=== PATIENT | male | born 1940 | race Caucasian/White ===

== ENCOUNTER 2020-03-10 21:41 | Emergency (ER) | payer MEDICARE, SELFPAY ==
[2020-03-10 21:45] VITALS: BP 152/67; PULSE 46; RESP 18; TEMP 36.4; O2SAT 99; BMI 23.6
--- NOTE | 2020-03-10 22:07 | ED_ITS ---
HPI - Extremity Problem General Chief complaint: Extremity Problem,Nontraumatic Stated complaint: left leg pain, concerned about a blood clot Time Seen by Provider: 03/10/20 21:46 Source: patient Mode of arrival: Ambulatory Limitations: no limitations History of Present Illness HPI Narrative: 79M with history of HTN, VIDA, and TGA presents with the chief complaint of a painful swollen area on left medial, posterior knee and there is concern for clot. He denies any injury. He denies injury or history of the same. He does have known varicosities in both legs. He denies CP, SOB, or other symptoms. MD Complaint: extremity pain and extremity swelling Onset (ago): day(s) Pain Consistency: constant Location: left Quality: aching Radiation: none Relieving factors: nothing Exacerbating factors: range of motion and palpation Associated symptoms: denies other symptoms Related Data Home Medications Medication Instructions Recorded Confirmed fexofenadine 180 mg tablet 180 mg PO DAILY 02/01/18 01/31/19 Resmed Airsense 10 CPAP #1 ea 01/31/19 01/31/19 Previous Rx's Medication Instructions Recorded atorvastatin [Lipitor] 80 mg PO HS #90 tab 01/13/17 ezetimibe [Zetia] 10 mg PO QDAY #90 tab 04/05/17 lisinopril-hydrochlorothiazide 1 tab PO QDAY #90 tab 04/05/17 Allergies Allergy/AdvReac Type Severity Reaction Status Date / Time No Known Allergies Allergy Uncoded 01/31/19 15:01 Review of Systems Constitutional Constitutional: Denies chills, Denies fatigue, Denies fever(s), Denies frequent falls, Denies lethargy and Denies weakness Eyes Eyes: Denies change in vision, Denies eye discharge, Denies irritation and Denies loss of vision ENT Ears, Nose, Mouth, and Throat: Denies change in voice, Denies dizziness, Denies neck pain, Denies sore throat and Denies throat swelling Cardiovascular Cardiovascular: Denies chest pain, Denies irregular heart rhythm, Denies lightheadedness, Denies palpitations, Denies dyspnea, Denies dyspnea on exertion and Denies orthopnea Respiratory Respiratory: Denies cough, Denies dyspnea, Denies dyspnea on exertion and Denies wheezing Gastrointestinal Gastrointestinal: Denies abdominal pain, Denies change in bowel habits, Denies diarrhea, Denies nausea and Denies vomiting Musculoskeletal Musculoskeletal: Denies neck pain and Denies numbness Integumentary/Breasts Skin/Breast: Denies pruritus, Denies erythema, Denies rash and Denies wounds Comments: painful swelling in knee Neurologic Neurologic: Denies behavioral changes, Denies confusion, Denies dizziness, Denies frequent falls, Denies loss of vision, Denies numbness and Denies we akness Psychiatric Psychiatric: Denies anxiety, Denies behavioral changes, Denies confusion, Denies depression, Denies homicidal ideation and Denies suicidal ideation Endocrine Endocrine: Denies fatigue, Denies flushing and Denies palpitations Hematologic/Lymphatic Hematologic/Lymphatic: Denies easy bruising Allergic/Immunologic Allergic/Immunologic: Denies urticaria, Denies throat swelling and Denies wheezing Patient History Social History Smoking Status: Former smoker Smoking Status: Former smoker alcohol intake frequency: 0-2 drinks per day Substance Use Type: does not use Exam Narrative Exam Narrative: GENERAL: [79] year old patient appears stated age. Well- nourished, well-developed patient, in mild distress. HEAD: Atraumatic. Normocephalic. EYES: Pupils equal round and reactive. Extraocular motions intact. No scleral icterus. No injection or drainage. ENT: Nose without bleeding, purulent drainage. Throat without erythema, tonsillar hypertrophy or exudate. Airway patent. NECK: Trachea midline. Non tender CARDIOVASCULAR: Regular rate and rhythm without murmurs, gallops, or rubs. RESPIRATORY: Clear to auscultation. Breath sounds equal bilaterally. No wheezes, rales, or rhonchi. GASTROINTESTINAL: Abdomen soft, non-tender, nondistended. EXTREMITIES: No deformity or bony tenderness. BACK: Nontender without deformity or crepitance. No flank tenderness. NEURO: AOx3. SKIN: Swollen, tender [place] region on left medial posterior knee consistent with thrombosed varicosity / superficial thromus Otherwise. No rash or erythema of visible areas Initial Vital Signs Initial Vital Signs: Vital Signs Temperature 97.6 F 03/10/20 21:45 Pulse Rate 46 L 03/10/20 21:45 Respiratory Rate 18 03/10/20 21:45 Blood Pressure 152/67 H 03/10/20 21:45 Pulse Oximetry 99 03/10/20 21:45 Course Orders Ordered: ED Orders 03/10/20 22:14 US periph venous low extrem lt Stat 03/10/20 22:25 Basic Metabolic Panel Stat Complete Blood Count AUTO DIFF Stat Prothrombin Time INR Stat Vital Signs Vital signs: Vital Signs - 8 hr 03/10/20 21:45 03/10/20 23:19 Temperature 97.6 F Pulse Rate 46 L 41 L Respiratory Rate 18 12 Blood Pressure 152/67 H 147/66 H Pulse Oximetry 99 98 MDM - Extremity (Nontraumatic) Lab Data Result diagrams: 03/10/20 22:25 03/10/20 22:25 Labs: Lab Results 03/10/20 03/10/20 03/10/20 Range/Units 22:25 22:25 22:25 WBC 6.2 (4.5-11.0) X10^3/uL RBC 4.01 L (4.5-5.9) X10^6/uL Hgb 11.8 L (13.5-17.5) g/dL Hct 35.7 L (41-53) % MCV 88.8 (80-100) fL MCH 29.4 (26-34) PG MCHC 33.1 (30-36) % RDW 14.3 (11.6-14.8) % Plt Count 173 (150-400) X10^3/uL Neut % (Auto) 55.2 (50-75) % Lymph % (Auto) 29.4 (25-40) % [place] % (Auto) 11.2 (3-14) % Eos % (Auto) 3.3 (2-4) % Baso % (Auto) 0.9 (0-2) % Neut # (Auto) 3400 (4294-0479) /uL Lymph # (Auto) 1800 (5540-0214) /uL [place] # (Auto) 700 (0-900) /uL Eos # (Auto) 200 (0-450) /uL Baso # (Auto) 100 (0-100) /uL PT 12.3 (10.1-12.7) SECONDS INR 1.1 (0.9-1.3) Sodium 135 L (137-145) mmol/L Potassium 4.3 (3.4-5.1) mmol/L Chloride 108 H (98-107) mmol/L Carbon Dioxide 24 (22-32) mmol/L BUN 30 H (9-20) mg/dL Creatinine 0.91 (0.66-1.25) mg/dL Estimated GFR > 60.0 (>60) mL/min BUN/Creatinine Ratio 33.0 H (6-22) Glucose 107 (80-110) mg/dL Calcium 8.9 (8.4-10.2) mg/dL Imaging Data US - DVT: Radiologist's Impression: 3cm thrombosed varicosity MDM Narrative Medical decision making narrative: Consideration of anticoagulation however, it is less than 5cm and it is not apparently contiguous with superficial femoral. Patient encouraged to follow up closely Discharge Plan Departure Patient Disposition: Home Clinical Impression: Superficial vein thrombosis Discharge Date/Time: 03/10/20 23:22 Instructions: DI for Superficial Thrombophlebitis Activity Restrictions/Additional Instructions: *You have been diagnosed with [superficial thrombo phlebitis of varicosity in left leg] *What to do: *Take medications as directed *Follow up with your primary care provider in 2-3 days, call for an appointment. Let them know you were seen in the Emergency Department and that we ask that you be seen in follow up *Return to ER if you should have any new, worsening or concerning symptoms Prescriptions: No Action atorvastatin [Lipitor] 80 MG tablet 80 mg PO HS Qty: 90 RF: 1 lisinopril-hydrochlorothiazide 20 MG/25 MG tablet 1 tab PO QDAY Qty: 90 RF: 1 ezetimibe [Zetia] 10 MG tablet 10 mg PO QDAY Qty: 90 RF: 1 fexofenadine [Jesica Allergy] 180 mg tablet 180 mg PO DAILY RF: 0 (DME) Resmed Airsense 10 CPAP Qty: 1 RF: 0 Referrals: Srinath Weiss MD [Primary Care Provider] -
--- NOTE | 2020-03-10 22:14 | DI.US.S_ITS ---
PROCEDURE: US PERIPH VENOUS LOW EXTREM LT INDICATIONS: pain, swelling, redness, warmth LLE TECHNIQUE: Real-time imaging, as well as color and pulse Doppler interrogation, were performed of the lower extremity deep veins from the inguinal ligament to the popliteal fossa. COMPARISON: None. FINDINGS: The common femoral, femoral and popliteal veins are normally compressible, and free of intraluminal thrombus. Color and pulse Doppler demonstrate normal phasic intraluminal flow. There is normal augmentation response to distal compression maneuver. Incidental note made of a 3 centimeter thrombosed superficial venous varicosity medial to the left knee appear. IMPRESSION: No evidence of deep vein thrombosis involving the left lower extremity. Dictated by: Tosha Spence MD, PhD on 03/11/2020 at 8:26 Approved by: Tosha Spence MD, PhD on 03/11/2020 at 8:27
[2020-03-10 22:37] LABS: Add Manual Diff / Slide Review NO; Basophils Absolute Auto 100 /uL (0-100); Basophils Percent Auto 0.9 % (0-2); Eosinophils Absolute Auto 200 /uL (0-450); Eosinophils Percent Auto 3.3 % (2-4); Hematocrit 35.7 % (41-53); Hemoglobin 11.8 g/dL (13.5-17.5); Lymphocytes Absolute Auto 1800 /uL (1100-4500); Lymphocytes Percent Auto 29.4 % (25-40); Mean Corpuscular HGB Conc 33.1 % (30-36); Mean Corpuscular Hemoglobin 29.4 PG (26-34); Mean Corpuscular Volume 88.8 fL (80-100); Monocytes Absolute Auto 700 /uL (0-900); Monocytes Percent Auto 11.2 % (3-14); Neutrophils Absolute Auto 3400 /uL (1500-7000); Neutrophils Percent Auto 55.2 % (50-75); Platelet Count 173 X10^3/uL (150-400); Red Blood Cell Count 4.01 X10^6/uL (4.5-5.9); Red Cell Distribution Width 14.3 % (11.6-14.8); White Blood Cell Count 6.2 X10^3/uL (4.5-11.0)
[2020-03-10 22:48] LABS: INR 1.1 (0.9-1.3); Prothrombin Time 12.3 SECONDS (10.1-12.7)
[2020-03-10 23:02] LABS: Blood Urea Nitrogen 30 mg/dL (9-20); Calcium 8.9 mg/dL (8.4-10.2); Carbon Dioxide 24 mmol/L (22-32); Chloride 108 mmol/L (98-107); Estimated Glomerular Filt Rate > 60.0 mL/min (>60); Glucose 107 mg/dL (80-110); HEMOLYSIS < 15 (0-50); Potassium 4.3 mmol/L (3.4-5.1); Sodium 135 mmol/L (137-145)
[2020-03-10 23:19] VITALS: BP 147/66; PULSE 41; RESP 12; O2SAT 98
== END 2020-03-10 23:22 | disposition home or self-care (01) ==
PROVIDERS: Emergency Provider Emergency Medicine; Family Provider Family Medicine; PCP Family Medicine
DX: I82.812 Embolism and thrombosis of superficial veins of left lower extremity (principal)
CPT/HCPCS: 36415; 80048; 85025; 85610; 93971; 99283; 99284

== ENCOUNTER 2021-02-28 11:36 | Observation (INO) | payer MEDICARE, SELFPAY ==
[2021-02-28] VITALS (13 sets, daily range): BP systolic 159–196; BP diastolic 56–82; PULSE 36–44; RESP 16–29; TEMP 36.3–36.6; O2SAT 91–100; BMI 23.6
--- NOTE | 2021-02-28 11:51 | DI.RAD.S_ITS ---
PROCEDURE: XR CHEST 1V INDICATIONS: Possible stroke TECHNIQUE: One view of the chest was acquired. COMPARISON: ADRIANA Tate, CHEST 2 VIEW, 10/04/2014, 15:26. FINDINGS: Surgical changes and devices: None. Lungs and pleura: Lungs are clear. No pleural effusions or pneumothorax. Mediastinum: Mediastinal contours appear normal. Heart size is mildly enlarged. Bones and chest wall: No suspicious bony lesions. Overlying soft tissues appear unremarkable. IMPRESSION: No acute pulmonary process. Dictated by: Barbara Blunt M.D. on 02/28/2021 at 12:21 Approved by: Barbara Blunt M.D. on 02/28/2021 at 12:23
--- NOTE | 2021-02-28 11:53 | PC.NURSE ---
Pt arrives ambulatory from eye doctor c/o loss of some vision in L eye. 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 No blood thinners and states Ran out of ASA. LKW 2100 last night before going to bed. states awoke with loss of upper quadrants vision in L eye. No weakness appreciated in all limbs, AAOx3, HR noted to be 36-40. Pt unaware if that is baseline. BP 196/82. Denies H/A, CP, SOB. EKG obtained. attached to cardiac monitoring, IV placed and labs drawn. Dr Palomares aware.
--- NOTE | 2021-02-28 11:54 | DI.CT.S_ITS ---
PROCEDURE: CT ANGIO HEAD AND NECK INDICATIONS: Known left central retinal artery occlusion, prior right occ TECHNIQUE: Pre-contrast 4.5 mm thick sections acquired from the foramen magnum to the vertex. After the administration of intravenous contrast, 1 mm thick sections acquired from the aortic arch through the [place] of [place]. Post-contrast 4.5 mm thick sections then re-acquired from the foramen magnum to the vertex. 3-dimensional [id number] (MIP) and/or volume rendering reformats were acquired of the central intracranial vasculature and neck separately. COMPARISON: None. FINDINGS: Image quality: Excellent. BRAIN: CSF spaces: Ventricles are normal in size and shape. Basal cisterns are patent. No extra-axial fluid collections. Brain: No midline shift. No intracranial bleeds or masses. [place]le[place]-white matter interface appears intact. Skull and face: Calvarium and facial bones appear intact, without suspicious lesions. Orbits appear normal. Sinuses: Sinuses and mastoids are clear. HEAD CT ANGIOGRAPHY: Anterior circulation: Intracranial internal carotid arteries have atherosclerotic calcifications in the cavernous portions with moderate right and mild left stenosis. The flow within the paired anterior cerebral arteries is normal and symmetric. The flow within the middle cerebral arteries is normal and symmetric. The anterior communicating artery is seen. No aneurysms are seen. Posterior circulation: Visualized portions of the vertebral arteries demonstrate normal caliber, and join to form a normal appearing basilar artery. Flow within the posterior cerebral arteries is normal and symmetric. No aneurysms are seen. NECK CT ANGIOGRAPHY: Carotid system: The great vessels demonstrate a conventional anatomy as they arise from the aortic arch. At the origin of the right brachiocephalic artery there is eccentric plaque causing a moderate stenosis with ulcerations within the plaque. The origins of the common carotid arteries appear patent. The common carotid arteries demonstrate normal caliber and courses. The bifurcation regions have atherosclerotic calcifications with no significant stenosis on the left and with approximately 40 percent stenosis on the right. The internal carotid arteries demonstrate normal calibers and courses. Posterior circulation: The origin of the right vertebral artery has a moderate stenosis. The origin of the left vertebral artery also has a moderate stenosis. The more superior extracranial portions of both vertebral arteries also demonstrate normal courses and calibers. They join to form a normal appearing basilar artery. Soft tissues: Visualized neck soft tissues demonstrate no suspicious abnormalities. Bones: No suspicious bony lesions. Visualized cervical spine appears normally aligned. IMPRESSION: 1. Eccentric soft plaque at the origin of the right brachiocephalic artery with ulceration could possibly be unstable and a source of emboli. 2. Moderate stenosis of the origins of both vertebral arteries. 3. Calcified atherosclerotic disease in the carotid bulbs bilaterally with 40 percent stenosis on the right and no significant stenosis on the left. 4. Atherosclerotic calcifications Findings were discussed with Dr. Palomares at 1:25 p.m. On 02/28/2021. Any quantitative measurements of stenosis were performed using NASCET criteria. Dictated by: Kehinde Lind M.D. on 02/28/2021 at 13:08 Approved by: Kehinde Lind M.D. on 02/28/2021 at 13:36
[2021-02-28 12:01] LABS: Add Manual Diff / Slide Review NO; Basophils Absolute Auto 100 /uL (0-100); Basophils Percent Auto 0.8 % (0-2); Eosinophils Absolute Auto 100 /uL (0-450); Eosinophils Percent Auto 1.9 % (2-4); Hematocrit 41.9 % (41-53); Hemoglobin 13.9 g/dL (13.5-17.5); Lymphocytes Absolute Auto 2100 /uL (1100-4500); Lymphocytes Percent Auto 27.9 % (25-40); Mean Corpuscular HGB Conc 33.2 % (30-36); Mean Corpuscular Volume 87.3 fL (80-100); Monocytes Absolute Auto 700 /uL (0-900); Monocytes Percent Auto 8.6 % (3-14); Neutrophils Absolute Auto 4600 /uL (1500-7000); Neutrophils Percent Auto 60.8 % (50-75); Platelet Count 220 X10^3/uL (150-400); Red Cell Distribution Width 14.7 % (11.6-14.8); White Blood Cell Count 7.6 X10^3/uL (4.5-11.0)
[2021-02-28 12:07] LABS: Alanine Aminotransferase 21 IU/L (<50); Albumin 4.1 g/dL (3.5-5.0); Albumin Globulin Ratio 1.6 (1.0-2.8); Alkaline Phosphatase 57 U/L (38-126); Aspartate Aminotransferase 32 IU/L (17-59); BUN Creatinine Ratio 21.8 (6-22); Bilirubin Total 0.7 mg/dL (0.2-1.3); Blood Urea Nitrogen 17 mg/dL (9-20); Calcium 9.5 mg/dL (8.4-10.2); Carbon Dioxide 29 mmol/L (22-32); Chloride 105 mmol/L (98-107); Creatine Kinase 134 U/L (55-170); Estimated Glomerular Filt Rate > 60.0 mL/min (>60); Globulin 2.6 g/dL (1.7-4.1); Glucose 92 mg/dL (80-110); HEMOLYSIS < 15 (0-50); Potassium 4.4 mmol/L (3.4-5.1); Sodium 137 mmol/L (137-145); Total Protein 6.7 g/dL (6.3-8.2)
--- NOTE | 2021-02-28 12:07 | ED_ITS ---
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 She states and patient confirmed his last known well was that last evening woke up with left eye visual disturbance. He has a history of partial right central artery occlusion however that has been there for some time. He apparently also has a history of abdominal aortic aneurysm which is stable. He denies any numbness tingling or weakness. Being treated with bromadine for his eye pressure however according to ophthalmology the eye pressure was good. Related Data Home Medications Medication Instructions Recorded Confirmed Resmed Airsense 10 CPAP #1 ea 01/31/19 01/31/19 aspirin 81 mg tablet,delayed 81 mg PO DAILY 02/28/21 02/28/21 release atorvastatin 80 mg tablet (Lipitor) 40 mg PO HS 02/28/21 02/28/21 cholecalciferol (vitamin D3) 50 50 mcg PO DAILY 02/28/21 02/28/21 mcg (2,000 unit) tablet coenzyme Q10 300 mg capsule 300 mg PO DAILY 02/28/21 02/28/21 lisinopril 10 1 tab PO DAILY 02/28/21 02/28/21 mg-hydrochlorothiazide 12.5 mg tablet omega-3 fatty acids-vitamin E 1 cap PO DAILY 02/28/21 02/28/21 1,000 mg capsule Previous Rx's Medication Instructions Recorded ezetimibe 10 mg tablet (Zetia) 10 mg PO QDAY #90 tab 04/05/17 Allergies Allergy/AdvReac Type Severity Reaction Status Date / Time No Known Drug Allergies Allergy Verified 02/28/21 11:47 Review of Systems Review of Systems ROS Unobtainable: All systems reviewed & are unremarkable except as noted in HPI and below Constitutional Constitutional: Denies chills, Denies fatigue and Denies fever(s) Eyes Eyes: Reports as per HPI ENT Ears, Nose, Mouth, and Throat: Denies vertigo, Denies dizziness, Denies disequilibrium and Denies sinus pain Cardiovascular Cardiovascular: Denies chest pain, Denies irregular heart rhythm and Denies dyspnea on exertion Respiratory Respiratory: Denies cough and Denies dyspnea on exertion Gastrointestinal Gastrointestinal: Denies abdominal pain, Denies nausea and Denies vomiting Genitourinary Genitourinary: Denies system reviewed and no additional complaints, except as documented Musculoskeletal Musculoskeletal: Denies myalgias and Denies myalgias Integumentary/Breasts Skin/Breast: Denies rash Neurologic Neurologic: Denies vertigo, Denies dizziness and Denies disequilibrium Endocrine Endocrine: Denies fatigue 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 HEENT: Head atraumatic,EOMI, pupils reactive, face symmetric, moist mucous membranes CARDIOVASCULAR: Regular rate and rhythm without murmurs, rubs or gallops. RESPIRATORY: Breath sounds equal bilaterally, no wheezes rales or rhonchi. ABDOMEN: Soft, nontender. Normoactive bowel sounds all 4 quadrants. No guarding or rebound. EXTREMITIES: Normal range of motion, no clubbing or edema. Neurovascularly intact NEUROLOGICAL: Alert and oriented x4.Normal gait and speech. Cranial nerves II through XII grossly intact. Good [id number], good [id number], strength equal bilaterally, no dysarthria or aphasia, sensation in tact to soft touch bilaterally, no visual changes, no facial droop SKIN: Warm, dry, no laceration, no petechiae, no rashes or lesions. Scores NIH Stroke Scale Level of Conciousness: Alert, keenly responsive Ask month/age: Answers both questions correctly. Open/close eyes, close hand: Performs both tasks correctly Best gaze horizontal: Normal Visual villan[place]: No visual loss Facial palsy: Normal symetrical movement Left arm drift: No drift for full 10 sec Right arm drift: No drift for full 10 sec Left leg drift: No drift for full 5 sec Right leg drift: No drift for full 5 sec Limb ataxia: Absent Sensory on face/arms/legs: Normal, no sensory loss Best language: No aphasia, normal Dysarthria: Normal Extinction or inattention: No abnormality Total NIH Stroke scale score: 0 Course Orders Ordered: ED Orders 02/28/21 11:44 C-Reactive Protein Quant Stat Complete Blood Count AUTO DIFF Stat Comprehensive Metabolic Panel Stat Erythrocyte Sedimentation Rate Stat Troponin & CK Cardiac Panel Stat 02/28/21 11:51 XR chest 1V Stat EKG-12 Lead Stat 02/28/21 11:54 CT angio head and neck Stat 02/28/21 12:23 CT head/brain wo con Stat 02/28/21 14:50 MR stroke Stat Sodium Chloride (Sodium Chloride 0.9% Flush) 10 ml IV PRN PRN PRN Reason: Flush Sodium Chloride (Sodium Chloride 0.9% Flush) 10 ml IV BID TERRY Discontinued Medications Aspirin (Aspirin 81 Mg Chew Tab) 324 mg PO NOW ONE Stop: 02/28/21 14:36 Last Admin: 02/28/21 14:45 Dose: 324 mg Documented by: RUBEN Vital Signs Vital signs: Vital Signs - 8 hr 02/28/21 12:00 02/28/21 12:01 02/28/21 13:16 Pulse Rate 36 L 37 L 38 L Respiratory Rate 29 H 28 H Blood Pressure 191/75 H 191/75 H Pulse Oximetry 100 100 91 02/28/21 13:30 02/28/21 14:00 02/28/21 14:30 Pulse Rate 39 L 39 L 40 L Respiratory Rate 29 H 28 H 21 Blood Pressure Pulse Oximetry 99 98 99 MDM - Neuro Symptoms/Deficit Lab Data Attestation: I reviewed the patient's lab results. Result diagrams: 02/28/21 11:44 02/28/21 11:44 Labs: Lab Results 02/28/21 02/28/21 02/28/21 Range/Units 11:44 11:44 11:44 WBC 7.6 (4.5-11.0) X10^3/uL RBC 4.80 (4.5-5.9) X10^6/uL Hgb 13.9 (13.5-17.5) g/dL Hct 41.9 (41-53) % MCV 87.3 (80-100) fL MCH 29.0 (26-34) PG MCHC 33.2 (30-36) % RDW 14.7 (11.6-14.8) % Plt Count 220 (150-400) X10^3/uL Neut % (Auto) 60.8 (50-75) % Lymph % (Auto) 27.9 (25-40) % [place] % (Auto) 8.6 (3-14) % Eos % (Auto) 1.9 L (2-4) % Baso % (Auto) 0.8 (0-2) % Neut # (Auto) 4600 (1341-6710) /uL Lymph # (Auto) 2100 (1244-1516) /uL [place] # (Auto) 700 (0-900) /uL Eos # (Auto) 100 (0-450) /uL Baso # (Auto) 100 (0-100) /uL ESR 3 (0-15) MM/HR Sodium 137 (137-145) mmol/L Potassium 4.4 (3.4-5.1) mmol/L Chloride 105 (98-107) mmol/L Carbon Dioxide 29 (22-32) mmol/L BUN 17 (9-20) mg/dL Creatinine 0.78 (0.66-1.25) mg/dL Estimated GFR > 60.0 (>60) mL/min BUN/Creatinine Ratio 21.8 (6-22) Glucose 92 (80-110) mg/dL Calcium 9.5 (8.4-10.2) mg/dL Total Bilirubin 0.7 (0.2-1.3) mg/dL AST 32 (17-59) IU/L ALT 21 (<50) IU/L Alkaline Phosphatase 57 (38-126) U/L Total Creatine Kinase 134 (55-170) U/L CK-MB (CK-2) 1.96 (<2.37) ng/mL CK-MB (CK-2) Rel Index 1.5 (1.5-5.0) % Troponin I < 0.012 (0.01-0.034) ng/mL C-Reactive Protein (<1.0) mg/dL Total Protein 6.7 (6.3-8.2) g/dL Albumin 4.1 (3.5-5.0) g/dL Globulin 2.6 (1.7-4.1) g/dL Albumin/Globulin Ratio 1.6 (1.0-2.8) 02/28/21 Range/Units 11:44 WBC (4.5-11.0) X10^3/uL RBC (4.5-5.9) X10^6/uL Hgb (13.5-17.5) g/dL Hct (41-53) % MCV (80-100) fL MCH (26-34) PG MCHC (30-36) % RDW (11.6-14.8) % Plt Count (150-400) X10^3/uL Neut % (Auto) (50-75) % Lymph % (Auto) (25-40) % [place] % (Auto) (3-14) % Eos % (Auto) (2-4) % Baso % (Auto) (0-2) % Neut # (Auto) (0550-7527) /uL Lymph # (Auto) (1363-1466) /uL [place] # (Auto) (0-900) /uL Eos # (Auto) (0-450) /uL Baso # (Auto) (0-100) /uL ESR (0-15) MM/HR Sodium (137-145) mmol/L Potassium (3.4-5.1) mmol/L Chloride (98-107) mmol/L Carbon Dioxide (22-32) mmol/L BUN (9-20) mg/dL Creatinine (0.66-1.25) mg/dL Estimated GFR (>60) mL/min BUN/Creatinine Ratio (6-22) Glucose (80-110) mg/dL Calcium (8.4-10.2) mg/dL Total Bilirubin (0.2-1.3) mg/dL AST (17-59) IU/L ALT (<50) IU/L Alkaline Phosphatase (38-126) U/L Total Creatine Kinase (55-170) U/L CK-MB (CK-2) (<2.37) ng/mL CK-MB (CK-2) Rel Index (1.5-5.0) % Troponin I (0.01-0.034) ng/mL C-Reactive Protein < 0.5 (<1.0) mg/dL Total Protein (6.3-8.2) g/dL Albumin (3.5-5.0) g/dL Globulin (1.7-4.1) g/dL Albumin/Globulin Ratio (1.0-2.8) Urine Dip Bedside Urine Glucose Negative Bedside Urine Bilirubin - Negative Bedside Urine Ketone - Negative Urine Specific [place] 1.015 Bedside Urine Occult Blood - Negative Bedside Urine pH 6.0 Bedside Urine Protein - Negative Bedside Urine Urobilinogen - Negative Bedside Urine Nitrite - Negative Bedside Urine Leukocytes - Negative Esterase ECG Data Interpretation: Sinus bradycardia rate 36 MO interval 174 QRS [address] changes, MDM Narrative Medical decision making narrative: Patient is persistently bradycardic 39-43. He states that he is always bradycardic. Remained hypertensive in the 190s. Patient is found to have an unstable plaque at his brachial radial cephalic artery. I discussed case with Neurology Dr. Barton, but states at this time medication only. Suggest anti-platelet medication aspirin/possibly Plavix and hyperlipidemia control. Patient has low ESR CRP unlikely to be temporal arteritis Dr. ho updated on patient's symptoms chest resolved and neuro recommendations at this time she happily accepted Discharge Plan Departure Patient Disposition: Admitted as Observation Clinical Impression: Acute retinal artery occlusion, Atherosclerotic vascular disease Admit Date/Time: 02/28/21 14:51 Admit Provider: Patti Ho
[2021-02-28 12:11] LABS: C-Reactive Protein Quant < 0.5 mg/dL (<1.0)
[2021-02-28 12:18] LABS: Erythrocyte Sedimentation Rate 3 MM/HR (0-15)
[2021-02-28 12:19] LABS: Troponin I < 0.012 ng/mL (0.01-0.034)
[2021-02-28 12:23] LABS: CKMB % Relative Index 1.5 % (1.5-5.0); Creatine Kinase MB 1.96 ng/mL (<2.37)
--- NOTE | 2021-02-28 12:23 | DI.CT.S_ITS ---
PROCEDURE: CT HEAD/BRAIN WO CON INDICATIONS: left eye visual loss TECHNIQUE: Noncontrast 4.5 mm thick angled axial sections acquired from the foramen magnum to the vertex, with coronal and sagittal reformats. For radiation dose reduction, the following was used: automated exposure control, adjustment of mA and/or kV according to patient size. COMPARISON: None. FINDINGS: Image quality: Excellent. CSF spaces: Basal cisterns are patent. No extra-axial fluid collections. The ventricles are symmetric in size and shape. Brain: No intracranial bleeds or masses. There is cerebral volume loss for age, with resultant ventricular and sulcal prominence. There are periventricular and deep white matter chronic small vessel ischemic changes. There is intracranial internal carotid artery atherosclerosis. Skull and face: Calvarium and visualized facial bones appear intact, without suspicious lesions. Sinuses: Visualized sinuses and mastoids are clear. IMPRESSION: 1. No acute intracranial abnormality. 2. Mild cerebral volume loss and microvascular ischemic disease. Dictated by: Kehinde Lind M.D. on 02/28/2021 at 13:05 Approved by: Kehinde Lind M.D. on 02/28/2021 at 13:07
--- NOTE | 2021-02-28 13:29 | PC.NURSE ---
repeat neuro exam. no changes since last assessment.
[2021-02-28] MEDS: ASPIRIN 81 MG CHEW TAB 324 MG PO (14:45)
--- NOTE | 2021-02-28 14:50 | DI.MRI.S_ITS ---
PROCEDURE: MR STROKE Pre- and post-contrast brain MRI, non-contrast brain MR angiogram, pre- and postcontrast neck MR angiogram INDICATIONS: Retinal artery occlusion, TECHNIQUE: Brain: Noncontrast axial T1 spin echo, axial T2 fast spin echo, sagittal and axial FLAIR, coronal T2 fast spin echo, axial gradient echo, axial diffusion and ADC through the brain. After the administration of contrast, axial 3D VIBE of the cranial vasculature and brain. Brain MRA: Non-contrast 3-D time of flight MR angiogram, with multiple qhkhgwt-xslomeuxo-terzrzspax (MIP) reformats performed. Neck MRA: Axial and sagittal TruFISP through the neck. Coronal dynamic MR angiogram during administration of contrast in the arterial and venous phases, with 3-dimenstional bhtebly-kfxvqhowj-zrcsxzbmet (MIP) reformats constructed from subtraction images. COMPARISON: [facility], CT, CT ANGIO HEAD AND NECK, 02/28/2021, 12:21. FINDINGS: Image quality: Excellent. BRAIN: CSF spaces: Ventricles are normal in size and shape. Basal cisterns are patent. No extra-axial fluid collections. Brain: No intracranial bleeds or mass effects. Moderate diffuse cerebral volume loss. Mild degree of patchy high FLAIR signal within the periventricular and subcortical white matter. Callejas-white matter interface is normal. Diffusion weighted images show no acute ischemic insults. Brainstem appears normal. Normal intravascular flow voids are present. No abnormal intracranial enhancement. Skull and face: Calvarial marrow signal is normal. Orbits appear normal. Sinuses: Sinuses and mastoids are clear. BRAIN MR ANGIOGRAM: Anterior circulation: Intracranial internal carotid arteries are normal in size and enhancement. The flow within the paired anterior cerebral arteries is normal and symmetric. The flow within the middle cerebral arteries is normal and symmetric. The anterior communicating artery is seen. No stenoses, occlusions, or aneurysms. Posterior circulation: The visualized portions of the vertebral arteries demonstrate normal caliber, and join to form a normal appearing basilar artery. The flow within the posterior cerebral arteries is normal and symmetric. No stenoses, occlusions, or aneurysms. NECK MR ANGIOGRAM: [employer] T2 imaging of the neck is grossly unremarkable. Moderate origin stenosis of the innominate artery. Moderate focal stenosis on the proximal right subclavian artery. Moderate right vertebral artery origin stenosis. Right vertebral artery is otherwise patent. Suboptimally visualized right common carotid artery origin which appears normally on CT a examination. Right external carotid artery is patent. Right internal carotid artery demonstrates a roughly 50% origin stenosis and is otherwise patent with a pharyngeal loop. Left common carotid artery is patent. Roughly 10% origin stenosis of the left internal carotid artery with a pharyngeal loop. Left vertebral artery arises directly from the aortic arch in its origin is not well seen. Left vertebral artery is otherwise patent. Left subclavian artery is patent. IMPRESSION: BRAIN MRI: 1. No acute process. No recent infarct. 2. Volume loss and small vessel ischemic disease. BRAIN MR ANGIOGRAM: No significant change in appearance of vasculature compared to same day CT angiography examination. No significant stenosis or aneurysm. NECK MR ANGIOGRAM: 1. No significant change in appearance of vasculature compared to same day CT angiography examination. 2. Right greater than left internal carotid artery origin stenosis. 3. Moderate right vertebral artery origin stenosis. Suboptimally visualized left vertebral artery. 4. Right subclavian and brachiocephalic artery stenosis as described above. Dictated by: Jax Crespo M.D. on 02/28/2021 at 15:57 Approved by: Jax Crespo M.D. on 02/28/2021 at 16:02
[2021-02-28 16:43] LABS: COVID19 - ADMIT (NP swab/PCR) Negative (Negative)
--- NOTE | 2021-02-28 16:46 | PC.NURSE ---
Addendum entered by Sonya Scott R.N. 02/28/21 22:08: Asymptomatic bradycardia when up to bathroom to void. Standby assistance back to bed and alarm set. Reinforced to pt to use call light to summon staff when needing/desiring out of bed. Tele in place. Provided pt with plan of care overnight and into morning. Addendum entered by Sonya Scott R.N. 02/28/21 20:41: Hospitalist Aldair juarez will discuss matter doctor to doctor with Dr. Alexis railroad design consultant for opthalmology. Addendum entered by Sonya Scott R.N. 02/28/21 20:22: FOSTER Quinteros in to see patient. Pt reports no change in vision. Up to bathroom with standby assist. Pt and pt's spouse reported upon admission pt had seen Dr. Lopez earlier in day and eye drops were prescribed to be filled @ [facility]. Neither pt nor spouse can recall the name of this medication. This caption writer phoned [facility] and was told there was not a prescription transmitted for this patient. Although call schedule states Dr. Lopez is railroad design consultant, this is not the case when this caption writer phoned answering service to attempt to discuss with Dr. Lopez. FOSTER Quinteros as made aware. Addendum entered by Sonya Scott R.N. 02/28/21 18:06: Discussion with Dr. Ho re this patient's arrival to floor. Per Dr. Ho, this patient's admission and care will be deferred to the overnight TAKE OFF WORKER. Pt resting quietly in bed with eyes closed. No signs of distress or discomfort. Original Note: Pt to room 224 from E.R. via wheelchair. States eyes are light sensitive so lights off and blinds drawn in pt's room. Pt denies pain. States right eye slightly blurry with diminished vision left eye. Mentation is appropriate. Pt is able to communicate needs and wants to staff. Pt's spouse arrives briefly and then departs. Spouse states took pt's valuables to home. Pt HR 40-50's and pt is asymptomatic with this rate. Awaiting hospitalist to see patient in hospital. Pt provided with diet as ordered.
[2021-02-28] MEDS: SODIUM CHLORIDE 0.9% FLUSH 10 ML IV (20:44)
[2021-02-28 21:38] LABS: Magnesium 2.2 mg/dL (1.6-2.3)
[2021-02-28] MEDS: lisinopriL 20 MG TABLET PO (21:42)
[2021-02-28] MEDS: EZETIMIBE 10 MG TABLET PO (21:43)
[2021-02-28] MEDS: ATORVASTATIN 20 MG TABLET 80 MG PO (21:43)
[2021-02-28 21:59] LABS: Hemoglobin A1C% w Est Avg Glu 5.9 % (4.0-6.0)
[2021-02-28 22:09] LABS: Thyroid Stimulating Hormone 2.69 uIU/mL (0.47-4.68)
[2021-03-01] VITALS (9 sets, daily range): BP systolic 115–134; BP diastolic 46–61; PULSE 39–45; RESP 15–95; TEMP 36.1–36.7; O2SAT 95–98
--- NOTE | 2021-03-01 | DI.ECHO.S_ITS ---
[place]---------+ [facility] +---------+ : : [address] : [place] : : : : [id number] : : : : Phone: [phone]+ Echocardiogram Report + + :Name: JUHI CRAFT Study Date: 03/01/2021 Height: 70 in : :[facility] ReadingLocation: Weight: 159 lb : : Gender: Male BSA: 1.9 m2 : :: 1940 Age: 80 yrs BP: 126/61 mmHg: :Reason For Study: STROKE : :Ordering Physician: REBECA, : :BERT Performed By: Sekou Gonsales : :Referring: BERT JOSE : + + Interpretation Summary The patient was in sinus bradycardia with heart rates between 47-51 bpm during the exam. The left ventricle is mildly dilated. Left ventricular ejection fraction is estimated to be 50 +/- 5%. No obvious LV thrombus seen. There is mild global hypokinesis of the left ventricle. The right ventricle is normal in size and function. Injection of contrast documented no interatrial shunt. There is mild to moderate aortic regurgitation. The ascending aorta is mildly enlarged. Procedure: A two-dimensional transthoracic echocardiogram with color flow and Doppler was performed. The study quality was technically adequate. There is no prior echocardiogram noted for this patient. The patient was in sinus bradycardia with heart rates between 47-51 bpm during the exam. Left Ventricle: There is normal left ventricular wall thickness. The left ventricle is mildly dilated. A false chord is noted (normal variant). Left ventricular ejection fraction is estimated to be 50 +/- 5%. There is mild global hypokinesis of the left ventricle. Diastolic parameters suggest a relaxation abnormality of the left ventricle, consistent with probable normal filling pressures. Right Ventricle: The right ventricle is normal in size and function. Atria: The left atrium is moderately dilated. Right atrial size is normal. There is no Doppler evidence for an interatrial shunt. Injection of contrast documented no interatrial shunt. Mitral Valve: There is mild mitral annular calcification. There is trace mitral regurgitation. Aortic Valve: There is mild aortic valve sclerosis. The aortic valve is trileaflet. There is discrete nodular thickening of the non- coronary cusp. There is no aortic valve stenosis. There is mild to moderate aortic regurgitation. Tricuspid Valve: The tricuspid valve is normal in structure and function. The right ventricular systolic pressure is estimated to be at least 24 mmHg based on an estimated right atrial pressure of 3 mm Hg. There is trace tricuspid regurgitation. Pulmonic Valve: The pulmonic valve is not well seen, but is grossly normal. There is a trace or physiologic amount of pulmonic regurgitation. Great Vessels: The aortic root is normal size. The ascending aorta is mildly enlarged. The aortic arch could not be visualized. The IVC is of normal diameter and collapses greater than 50% with a sniff. This suggests a low right atrial pressure of 3 mm Hg. Pericardium/ Pleura There is no pericardial effusion. There is no pleural effusion. MMode/2D Measurements & Calculations LVIDd: 6.1 cm LVOT diam: 2.5 cm LVIDs: 4.0 cm Ao root diam: 3.9 cm FS: 34.5 % asc Aorta Diam: 4.1 cm IVSd: 1.0 cm LVPWd: 0.96 cm LV vincent. diameter/BSA (cm/m^2): 3.2 LV sys. diameter/BSA (cm/m^2): 2.1 LA A2 area: 24.6 cm2 RA long axis: 4.4 cm LA A4 area: 20.6 cm2 RA area: 10.1 cm2 LA length (vol): 5.4 cm RA vol: 20.0 ml LA vol: 79.2 ml RA : 10.6 ml/m2 LA vol index: 41.8 ml/m2 TAPSE: 2.2 cm Doppler Measurements & Calculations Ao V2 max: 159.5 cm/sec LVOT Max Yvon: 109.1 cm/sec Ao V2 mean: 107.7 cm/sec LV V1 max P.8 mmHg Ao max P.2 mmHg LV V1 VTI: 21.4 cm Ao mean P.4 mmHg JANELLE(I,D): 3.5 cm2 Ao V2 VTI: 29.5 cm JANELLE(V,D): 3.3 cm2 sev ratio: 0.72 JANELLE indexed to BSA (cm^2/m^2): 1.9 AI P1/2t: 438.6 msec AI dec slope: 289.6 cm/sec2 MV E max yvon: 38.6 cm/sec TR max yvon: 228.8 cm/sec MV A max yvon: 68.2 cm/sec TR max P.9 mmHg MV E/A: 0.57 PA pr(Accel): 46.9 mmHg Med Peak E' Yvon: 5.5 cm/sec E/E' med: 7.1 Lat Peak E' Yvon: 6.8 cm/sec E/E' lat: 5.7 E/e' average: 6.4 MV dec time: 0.36 sec SV(OT): 104.3 ml Reading Physician:01:32 PM
--- NOTE | 2021-03-01 00:01 | P.HP_ITS ---
History of Present Illness History of Present Illness Date Patient Seen: 02/28/21 Time Patient Seen: 20:30 Chief complaint: Retinal Artery Occlusion Narrative: Herberth Hanna is a 80-year-old male with hypertension and hyperlipidemia woke up this morning with difficulty seeing out of his left eye. He was unable to reach his PCP but was seen by Dr. Lopez at [facility]. She told him that he had a retinal artery occlusion and needed to go to the emergency department. He states that she also instructed him use prescribed eyedrops and that it was important for him to start them tonight. Neither he or his recall what the medication is and nursing contacted the in hospital pharmacy and they did not have an order for a new prescription of eyedrops. He denies having headache he does state that he still has a blurry left eye he does state that his heart rate is normally in the high 40s. He denies shortness of breath, chest pain, numbing or tingling of his upper lower extremities, dysuria, nausea vomiting, diarrhea or constipation. Head CT and an MRI of the head were unremarkable. CTA of the head and neck indicated the following findings: 1. Eccentric soft plaque at the origin of the right brachiocephalic artery with ulceration could possibly be unstable and a source of emboli. 2. Moderate stenosis of the origins of both vertebral arteries. 3. Calcified atherosclerotic disease in the carotid bulbs bilaterally with 40 percent stenosis on the right and no significant stenosis on the left. 4. Atherosclerotic calcifications. Per the ED they discussed his case with the tele stroke neurologist and they did not feel that the patient required any vascular intervention at this time. [facility] and to have an echocardiogram done in the morning. Patient is afebrile, blood pressure 163/65 heart rate 44, respiratory rate of 17, oxygen saturation 97% on room air, he weighs 72.5 kg with a BMI of 23.6. CBC is unremarkable, chemistris are also unremarkable, hemoglobin A1c is 5.9, troponin was negative, and TSH was within normal limits, COVID 19 PCR was negat donald. 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 (09/21/16) Surgical History History of intraocular lens implant Hx of bilateral cataract extraction Family & Social History Family History Mother Colon cancer Father Parkinsons disease Sister Breast cancer Social History: household members children,none Prior Living Arrangements House Safety & Behavioral: Feels Safe in Current Yes Environment Been Physically Hurt or No Threatened By a Person Suicidal Ideation Description None Suicide Plan Description No Plan Tobacco & Substance use: Smoking Status Former smoker alcohol intake former alcohol intake frequency 0-2 drinks per day Substance Use Type does not use Comment: Retired real estate asset manager, relocated to [place] to be with his children who own a goat farm. Meds Home Medications and Allergies Home Medications Medication Instructions Recorded Confirmed Type ezetimibe 10 mg tablet (Zetia) 10 mg PO QDAY #90 tab 04/05/17 02/28/21 Rx Resmed Airsense 10 CPAP #1 ea 01/31/19 01/31/19 History aspirin 81 mg tablet,delayed 81 mg PO DAILY 02/28/21 02/28/21 History release atorvastatin 80 mg tablet (Lipitor) 40 mg PO HS 02/28/21 02/28/21 History cholecalciferol (vitamin D3) 50 50 mcg PO DAILY 02/28/21 02/28/21 History mcg (2,000 unit) tablet coenzyme Q10 300 mg capsule 300 mg PO DAILY 02/28/21 02/28/21 History lisinopril 10 1 tab PO DAILY 02/28/21 02/28/21 History mg-hydrochlorothiazide 12.5 mg tablet omega-3 fatty acids-vitamin E 1 cap PO DAILY 02/28/21 02/28/21 History 1,000 mg capsule Allergies Allergy/AdvReac Type Severity Reaction Status Date / Time No Known Drug Allergies Allergy Verified 02/28/21 11:47 Review of Systems Review of Systems ROS: Yes All systems reviewed with the patient and are negative except as otherwise documented Exam Vital Signs (past 8 hours): - 02/28/21 19:11 02/28/21 21:19 02/28/21 21:42 Temperature 97.9 F Pulse Rate 44 L 44 L Respiratory Rate 17 Blood Pressure 163/65 H 163/65 H Pulse Oximetry 97 97 Oxygen Delivery Method Room Air Oxygen Flow Rate 0 Narrative Exam Narrative: Gen: Alert, oriented, well-developed 80 y.o. male, NAD HEENT: normocephalic, atraumatic, conjunctiva clear, sclera non-icteric, oral mucosa pink and moist Neck: supple, full ROM, no JVD, trachea is midline Resp: Lungs CTA, non-labored breathing CV: RRR, no murmur or rubs Abd: soft, non-tender, normoactive BTs Skin: no lesions or rashes, dry and intact Neuro: Alert and oriented X 4 w/no focal deficits. Speech is clear and coherent. NIHs done in the emergency department and then upon arrival to the floor were b oth 1. Extremities: moves all 4 extremities, is ambulatory, negative Allen?s sign Psyche: normal mood and affect. Objective Labs Result Diagrams: 02/28/21 11:44 02/28/21 11:44 Labs: Laboratory Results - last 24 hr 02/28/21 02/28/21 02/28/21 11:44 11:44 11:44 WBC 7.6 RBC 4.80 Hgb 13.9 Hct 41.9 MCV 87.3 MCH 29.0 MCHC 33.2 RDW 14.7 Plt Count 220 Neut % (Auto) 60.8 Lymph % (Auto) 27.9 [place] % (Auto) 8.6 Eos % (Auto) 1.9 L Baso % (Auto) 0.8 Neut # (Auto) 4600 Lymph # (Auto) 2100 [place] # (Auto) 700 Eos # (Auto) 100 Baso # (Auto) 100 ESR 3 Sodium 137 Potassium 4.4 Chloride 105 Carbon Dioxide 29 BUN 17 Creatinine 0.78 Estimated GFR > 60.0 BUN/Creatinine Ratio 21.8 Glucose 92 Hemoglobin A1c Calcium 9.5 Magnesium Total Bilirubin 0.7 AST 32 ALT 21 Alkaline Phosphatase 57 Total Creatine Kinase 134 CK-MB (CK-2) 1.96 CK-MB (CK-2) Rel Index 1.5 Troponin I < 0.012 C-Reactive Protein Total Protein 6.7 Albumin 4.1 Globulin 2.6 Albumin/Globulin Ratio 1.6 TSH SARS-CoV-2 (PCR) 02/28/21 02/28/21 02/28/21 11:44 15:16 21:29 WBC RBC Hgb Hct MCV MCH MCHC RDW Plt Count Neut % (Auto) Lymph % (Auto) [place] % (Auto) Eos % (Auto) Baso % (Auto) Neut # (Auto) Lymph # (Auto) [place] # (Auto) Eos # (Auto) Baso # (Auto) ESR Sodium Potassium Chloride Carbon Dioxide BUN Creatinine Estimated GFR BUN/Creatinine Ratio Glucose Hemoglobin A1c Calcium Magnesium 2.2 Total Bilirubin AST ALT Alkaline Phosphatase Total Creatine Kinase CK-MB (CK-2) CK-MB (CK-2) Rel Index Troponin I C-Reactive Protein < 0.5 Total Protein Albumin Globulin Albumin/Globulin Ratio TSH SARS-CoV-2 (PCR) Negative 02/28/21 02/28/21 21:29 21:29 WBC RBC Hgb Hct MCV MCH MCHC RDW Plt Count Neut % (Auto) Lymph % (Auto) [place] % (Auto) Eos % (Auto) Baso % (Auto) Neut # (Auto) Lymph # (Auto) [place] # (Auto) Eos # (Auto) Baso # (Auto) ESR Sodium Potassium Chloride Carbon Dioxide BUN Creatinine Estimated GFR BUN/Creatinine Ratio Glucose Hemoglobin A1c 5.9 Calcium Magnesium Total Bilirubin AST ALT Alkaline Phosphatase Total Creatine Kinase CK-MB (CK-2) CK-MB (CK-2) Rel Index Troponin I C-Reactive Protein Total Protein Albumin Globulin Albumin/Globulin Ratio TSH 2.69 SARS-CoV-2 (PCR) Assessment & Plan Assessment & Plan narrative: 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 daily and aspirin 81 mg p.o. daily. He was written for Clopidgril loading dose of 300 mg tonight. * CT of the head, MRA of the head and neck and MR stroke were done on 02/28 * Complete Echo with bubble study for 03/01 * PT/OT/ST evaluation Hypertension, acute with an admission bp of 196/82, present on admission * Allow for permissive hypertension of 220/110 HR 60 to allow for brain perfusion * Allow for permissive hypertension for brain profusion of a systolic of 220 and a diastolic of 105. * IV labetolol if his systolic exceeds 220 or diastolic greater than 105. HLD * Fasting lipid panel, pending for 0500 labs * Atorvastatin 40 mg increased to 80 mg po at bedtime Risk stratification * Fasting lipid panel pending for the morning * A1c is 5.9% VTE prophylaxis: Wells risk score: 0 Enoxaparin 40 mg subQ daily Consults: none Patient is observation status as his stay is not likely to exceed 2 midnights. FEN: saline lock, heart healthy diet, BMP and magnesium in the am. Dispo: probable discharge to home Code Status: Full Code as discussed with patient who lists his , Vaishnavi Hanna as his surrogate and POA COVID-19 COVID-19 status: Negative Result date/Date tested (Pos, Neg/Pending): 02/28/21 Scores Wells' Criteria for PE Clinical signs and symptoms of DVT: No PE is #1 Dx or equally likely: No Heart rate > 100: No Immobilization at least 3 days or surg in previous 4 weeks: No History of PE or DVT: No Hemoptysis: No Malignancy w/Treatment within 6 months or palliative: No Wells' PE Score total: 0 Quality VTE Deep Vein Thrombosis/Pulmonary Embolism Present on Admission: No MIPS - Admit I confirm the patient?s Advance Care Plan is present, Code status is documented, Surrogate decision maker is in patient?s record [If Yes, STOP here]: Yes
[2021-03-01] MEDS: CLOPIDOGREL 75 MG TABLET 300 MG PO (01:36)
[2021-03-01 05:53] LABS: Add Manual Diff / Slide Review NO; Basophils Absolute Auto 100 /uL (0-100); Basophils Percent Auto 0.8 % (0-2); Eosinophils Absolute Auto 200 /uL (0-450); Eosinophils Percent Auto 3.2 % (2-4); Hematocrit 40.8 % (41-53); Hemoglobin 13.5 g/dL (13.5-17.5); Lymphocytes Absolute Auto 1700 /uL (1100-4500); Lymphocytes Percent Auto 27.5 % (25-40); Mean Corpuscular Hemoglobin 28.8 PG (26-34); Mean Corpuscular Volume 87.3 fL (80-100); Monocytes Absolute Auto 600 /uL (0-900); Monocytes Percent Auto 8.9 % (3-14); Neutrophils Absolute Auto 3700 /uL (1500-7000); Neutrophils Percent Auto 59.6 % (50-75); Platelet Count 201 X10^3/uL (150-400); Red Blood Cell Count 4.68 X10^6/uL (4.5-5.9); Red Cell Distribution Width 14.5 % (11.6-14.8); White Blood Cell Count 6.2 X10^3/uL (4.5-11.0)
[2021-03-01 06:01] LABS: BUN Creatinine Ratio 24.4 (6-22); Blood Urea Nitrogen 21 mg/dL (9-20); Calcium 9.2 mg/dL (8.4-10.2); Carbon Dioxide 27 mmol/L (22-32); Chloride 107 mmol/L (98-107); Cholesterol 99 mg/dL (140-199); Estimated Glomerular Filt Rate > 60.0 mL/min (>60); Glucose 94 mg/dL (80-110); HDL Cholesterol 53 mg/dL (40-60); HEMOLYSIS < 15 (0-50); LDL Cholesterol Calculated 35 mg/dL (<100); Potassium 4.8 mmol/L (3.4-5.1); Sodium 136 mmol/L (137-145); Triglycerides 57 mg/dL (35-150)
--- NOTE | 2021-03-01 08:16 | PC.NURSE ---
Day shift: Dr Lux informed of Pt's Bradycardia of HR 45 and he said ok for Pt to take his Lisinipril this AM. He also said Pt will have Echo today and then be able to go home.
[2021-03-01] MEDS: lisinopriL 20 MG TABLET PO (08:34)
[2021-03-01] MEDS: EZETIMIBE 10 MG TABLET PO (08:36)
[2021-03-01] MEDS: CLOPIDOGREL 75 MG TABLET PO (08:36)
[2021-03-01] MEDS: ASPIRIN EC 81 MG TABLET PO (08:36)
[2021-03-01] MEDS: ENOXAPARIN 40 MG/0.4 ML SYRINGE SUBCUT (08:36)
[2021-03-01] MEDS: SODIUM CHLORIDE 0.9% FLUSH 10 ML IV (08:37)
--- NOTE | 2021-03-01 10:51 | PM.DS.1 ---
History of Present Illness History of Present Illness Date Patient Seen: 03/01/21 Time Patient Seen: 09:15 Chief complaint: Retinal Artery Occlusion Narrative: Per FOSTER Nogueira: Herberth Hanna is a 80-year-old male with hypertension and hyperlipidemia woke up this morning with difficulty seeing out of his left eye. He was unable to reach his PCP but was seen by Dr. Lopez at [facility]. She told him that he had a retinal artery occlusion and needed to go to the emergency department. He states that she also instructed him use prescribed eyedrops and that it was important for him to start them tonight. Neither he or his recall what the medication is and nursing contacted the in hospital pharmacy and they did not have an order for a new prescription of eyedrops. He denies having headache he does state that he still has a blurry left eye he does state that his heart rate is normally in the high 40s. He denies shortness of breath, chest pain, numbing or tingling of his upper lower extremities, dysuria, nausea vomiting, diarrhea or constipation. Head CT and an MRI of the head were unremarkable. CTA of the head and neck indicated the following findings: 1. Eccentric soft plaque at the origin of the right brachiocephalic artery with ulceration could possibly be unstable and a source of emboli. 2. Moderate stenosis of the origins of both vertebral arteries. 3. Calcified atherosclerotic disease in the carotid bulbs bilaterally with 40 percent stenosis on the right and no significant stenosis on the left. 4. Atherosclerotic calcifications. Per the ED they discussed his case with the tele stroke neurologist and they did not feel that the patient required any vascular intervention at this time. The patient will essentially be placed in observation overnight for telemetry and to have an echocardiogram done in the morning. Patient is afebrile, blood pressure 163/65 heart rate 44, respiratory rate of 17, oxygen saturation 97% on room air, he weighs 72.5 kg with a BMI of 23.6. CBC is unremarkable, chemistris are also unremarkable, hemoglobin A1c is 5.9, troponin was negative, and TSH was within normal limits, COVID 19 PCR was negative. Discharge Providers Provider Date of admission: 02/28/21 14:51 Discharge Date: 03/01/21 Primary care physician: Srinath Weiss MD Consults: 03/01/21 00:38 Consult to Occupational Therapy Evaluate & Treat Comment: [place] concerning for a CVA, cog eval Physician Instructions: Evaluate and treat Consult to Physical Therapy Evaluate & Treat Comment: Retinal artery occlusion concerning for a CVA Physician Instructions: Evaluate and Treat Discharge provider: Luis Lux DO Summary Hospital Course Discharge Diagnosis: 1. Left retinal artery occlusion, present on admission 2 Hypertension with hypertensive urgency, chronic, present on admission. 3. HLD, chronic 4. Pre-diabetes Hospital Course: This is a 80-year-old male with a past medical history of hypertension and hyperlipidemia who was admitted for further evaluation after suffering acute onset of vision loss and was found to have a retinal artery occlusion by Ophthalmology. Patient underwent further evaluation with MRI and imaging of his blood vessels. He was noted to have mild stenoses, as well as a possible ulceration at the origin of the brachiocephalic artery on the right. He was seen by tele Neurology who recommended dual antiplatelet therapy. Echocardiogram showed no evidence of interatrial shunt and his EF was unremarkable, although he did have some mild global hypokinesis that was commented on. His blood pressures were initially elevated but improved the following day with resumption of his home medications. His home Lipitor was increased from 40 mg to 80 mg. He was also noted to have a mildly elevated A1c of 5.9% consistent with prediabetes. It was recommended he avoid driving until follow up as an outpatient with his PMD or [facility]. Code Status: Full Code as discussed with patient who lists his , Vaishnavi Hanna as his surrogate and POA Exam Vital Signs (past 8 hours): - 03/01/21 05:00 03/01/21 07:35 03/01/21 07:40 Temperature 97.0 F L 97.8 F Pulse Rate 42 L 41 L Respiratory Rate 95 H 16 Blood Pressure 133/52 L 126/61 Pulse Oximetry 95 98 98 03/01/21 08:34 Temperature Pulse Rate 45 L Respiratory Rate Blood Pressure 126/61 Pulse Oximetry Oxygen Delivery Method Room Air Oxygen Flow Rate 0 Narrative Exam Narrative: Gen: Alert, oriented, well-developed 80 y.o. male, NAD HEENT: normocephalic, atraumatic, conjunctiva clear, sclera non-icteric, oral mucosa pink and moist Neck: supple, full ROM, no JVD, trachea is midline Resp: Lungs CTA, non-labored breathing CV: RRR, no murmur or rubs Abd: soft, non-tender, normoactive BTs Skin: no lesions or rashes, dry and intact Neuro: Alert and oriented X 4 w/no focal deficits. Speech is clear and coherent. NIHs done in the emergency department and then upon arrival to the floor were both 1 for visual field deficits. Extremities: moves all 4 extremities, is ambulatory, negative Allen?s sign Psyche: normal mood and affect. Objective Labs Result Diagrams: 03/01/21 05:35 03/01/21 05:35 Labs: Laboratory Results - last 24 hr 02/28/21 02/28/21 02/28/21 11:44 11:44 11:44 WBC 7.6 RBC 4.80 Hgb 13.9 Hct 41.9 MCV 87.3 MCH 29.0 MCHC 33.2 RDW 14.7 Plt Count 220 Neut % (Auto) 60.8 Lymph % (Auto) 27.9 Letcher % (Auto) 8.6 Eos % (Auto) 1.9 L Baso % (Auto) 0.8 Neut # (Auto) 4600 Lymph # (Auto) 2100 Letcher # (Auto) 700 Eos # (Auto) 100 Baso # (Auto) 100 ESR 3 Sodium 137 Potassium 4.4 Chloride 105 Carbon Dioxide 29 BUN 17 Creatinine 0.78 Estimated GFR > 60.0 BUN/Creatinine Ratio 21.8 Glucose 92 Hemoglobin A1c Calcium 9.5 Magnesium Total Bilirubin 0.7 AST 32 ALT 21 Alkaline Phosphatase 57 Total Creatine Kinase 134 CK-MB (CK-2) 1.96 CK-MB (CK-2) Rel Index 1.5 Troponin I < 0.012 C-Reactive Protein Total Protein 6.7 Albumin 4.1 Globulin 2.6 Albumin/Globulin Ratio 1.6 Triglycerides Cholesterol LDL Cholesterol, Calc HDL Cholesterol TSH SARS-CoV-2 (PCR) 02/28/21 02/28/21 02/28/21 11:44 15:16 21:29 WBC RBC Hgb Hct MCV MCH MCHC RDW Plt Count Neut % (Auto) Lymph % (Auto) Letcher % (Auto) Eos % (Auto) Baso % (Auto) Neut # (Auto) Lymph # (Auto) Letcher # (Auto) Eos # (Auto) Baso # (Auto) ESR Sodium Potassium Chloride Carbon Dioxide BUN Creatinine Estimated GFR BUN/Creatinine Ratio Glucose Hemoglobin A1c Calcium Magnesium 2.2 Total Bilirubin AST ALT Alkaline Phosphatase Total Creatine Kinase CK-MB (CK-2) CK-MB (CK-2) Rel Index Troponin I C-Reactive Protein < 0.5 Total Protein Albumin Globulin Albumin/Globulin Ratio Triglycerides Cholesterol LDL Cholesterol, Calc HDL Cholesterol TSH SARS-CoV-2 (PCR) Negative 02/28/21 02/28/21 03/01/21 21:29 21:29 05:35 WBC 6.2 RBC 4.68 Hgb 13.5 Hct 40.8 L MCV 87.3 MCH 28.8 MCHC 33.0 RDW 14.5 Plt Count 201 Neut % (Auto) 59.6 Lymph % (Auto) 27.5 Letcher % (Auto) 8.9 Eos % (Auto) 3.2 Baso % (Auto) 0.8 Neut # (Auto) 3700 Lymph # (Auto) 1700 Letcher # (Auto) 600 Eos # (Auto) 200 Baso # (Auto) 100 ESR Sodium Potassium Chloride Carbon Dioxide BUN Creatinine Estimated GFR BUN/Creatinine Ratio Glucose Hemoglobin A1c 5.9 Calcium Magnesium Total Bilirubin AST ALT Alkaline Phosphatase Total Creatine Kinase CK-MB (CK-2) CK-MB (CK-2) Rel Index Troponin I C-Reactive Protein Total Protein Albumin Globulin Albumin/Globulin Ratio Triglycerides Cholesterol LDL Cholesterol, Calc HDL Cholesterol TSH 2.69 SARS-CoV-2 (PCR) 03/01/21 05:35 WBC RBC Hgb Hct MCV MCH MCHC RDW Plt Count Neut % (Auto) Lymph % (Auto) Letcher % (Auto) Eos % (Auto) Baso % (Auto) Neut # (Auto) Lymph # (Auto) Letcher # (Auto) Eos # (Auto) Baso # (Auto) ESR Sodium 136 L Potassium 4.8 Chloride 107 Carbon Dioxide 27 BUN 21 H Creatinine 0.86 Estimated GFR > 60.0 BUN/Creatinine Ratio 24.4 H Glucose 94 Hemoglobin A1c Calcium 9.2 Magnesium Total Bilirubin AST ALT Alkaline Phosphatase Total Creatine Kinase CK-MB (CK-2) CK-MB (CK-2) Rel Index Troponin I C-Reactive Protein Total Protein Albumin Globulin Albumin/Globulin Ratio Triglycerides 57 Cholesterol 99 L LDL Cholesterol, Calc 35 HDL Cholesterol 53 TSH SARS-CoV-2 (PCR) [facility] Medical History Abdominal aortic aneurysm (AAA) without rupture (09/21/16) Alcohol abuse (12/03/16) Benign non-nodular prostatic hyperplasia with lower urinary tract symptoms (09/21/16) Chronic systolic congestive heart failure (09/21/16) Diverticulosis of large intestine without hemorrhage (09/21/16) Erectile dysfunction due to arterial insufficiency (09/21/16) Essential hypertension (09/21/16) H/O alcohol abuse (12/03/16) History of colonic polyps (09/21/16) Mild cognitive impairment (12/03/16) Mixed hyperlipidemia (09/21/16) Renal artery stenosis (09/21/16) 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 You were found to have an ulcerated plaque in an artery in your neck, this is treated as if you've had a stroke. Your medications were changed to help reduce your risk of another stroke like event or stroke as much as possible. Ultrasound of your heart was unremarkable. Please try and follow up with your PCP this week if possible, and the eye doctor as previously scheduled. Discharge orders & Medications Prescriptions: New atorvastatin 80 mg tablet 80 mg PO BEDTIME 30 Days Qty: 30 RF: 0 clopidogrel 75 mg Tablet 75 mg PO DAILY 30 Days Qty: 30 RF: 0 Continued ezetimibe [Zetia] 10 MG tablet 10 mg PO QDAY Qty: 90 RF: 1 lisinopril-hydrochlorothiazide 10-12.5 mg Tablet 1 tab PO DAILY RF: 0 cholecalciferol (vitamin D3) 50 mcg (2,000 unit) Tablet 50 mcg PO DAILY RF: 0 coenzyme Q10 300 mg Capsule 300 mg PO DAILY RF: 0 omega-3 fatty acids-vitamin E 1,000 mg Capsule 1 cap PO DAILY RF: 0 aspirin 81 mg Tablet,Delayed Release (Dr/Ec) 81 mg PO DAILY 30 Days Qty: 30 RF: 0 (DME) Resmed Airsense 10 CPAP Qty: 1 RF: 0 Discontinued atorvastatin [Lipitor] 80 MG tablet 40 mg PO HS RF: 0 Follow up/Referrals: Srinath Weiss MD [Primary Care Provider] - Diet/Activity/Treatments Diet: Diet as Tolerated Activity: As tolerated, avoid driving until PCP follow up. Visit Report/Discharge Packet Instructions: Statin Drugs, Transient Ischemic Attack, How to Prevent Falls Discharge Data Primary Care Provider: Srinath Weiss Attending Provider: Patti Ho VTE Deep Vein Thrombosis/Pulmonary Embolism Present on Admission: No
--- NOTE | 2021-03-01 11:05 | PT.IIE ---
Medical History (Last Reviewed 03/01/21 @ 00:31 by FOSTER Nogueira) Abdominal aortic aneurysm (AAA) without rupture (09/21/16) Alcohol abuse (12/03/16) Benign non-nodular prostatic hyperplasia with lower urinary tract symptoms (09/21/16) Chronic systolic congestive heart failure (09/21/16) Diverticulosis of large intestine without hemorrhage (09/21/16) Erectile dysfunction due to arterial insufficiency (09/21/16) Essential hypertension (09/21/16) H/O alcohol abuse (12/03/16) History of colonic polyps (09/21/16) Mild cognitive impairment (12/03/16) Mixed hyperlipidemia (09/21/16) Renal artery stenosis (09/21/16) Transient global amnesia (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 15 steps with L rail to bedroom level has 1 step to the deck with R rail and another small step to enter the house Home Environment Standard Height Toilet,Walk in Shower Home Equipment Straight Cane Additional Social History Comment spouse stated that they live in a separate living area; pt' s house is within the same area as her daughter's house M2 PT-IP Current Condition Start: 03/01/21 14:03 Freq: NEEDED Status: Active Protocol: Document 03/01/21 11:05 AB (Rec: 03/01/21 14:20 AB [id number]) Physical Therapy Current Condition Current Condition Evaluation Date 03/01/21 Treatment Diagnosis L eye retinal occlusion; difficulty in walking Onset Date 02/28/21 M3 PT-IP Subjective Start: 03/01/21 14:03 Freq: NEEDED Status: Active Protocol: Document 03/01/21 11:05 AB (Rec: 03/01/21 14:20 AB [id number]) Subjective Physical Therapy Visit Type Type Initial Evaluation Visit Start Time 11:05 Visit Stop Time 11:30 Total Visit Minutes 25 Number of MEDICAL RECORDS SECRETARY Visits 0 Physical Therapy Visit Comments Patient Comments agreeable to do PT Therapy Pain Assessment Pain Present Pain Present Denied Pain M4 PT-IP Mobility and Gait Start: 03/01/21 14:03 Freq: NEEDED Status: Active Protocol: Document 03/01/21 11:05 AB (Rec: 03/01/21 14:20 AB [id number]) PT-Bed Mobility Assessment Supine to Sit Supine to Sit Independent Sit to Supine Sit to Supine Independent PT-Transfer Assessment Sit to and From Stand Sit to and from Stand Standby Assistance Equipment Transfer Assistive Device None,Gait Belt Orthotic/Prosthetic Devices or Brace: No Comments Mobility Comments pt supine in bed. no other complaints other than decrease vision: stated R eye is a little blurry and cannot see on L lower lateral quadrant. completed bed mobility supine to sit independent. completed sit to stand SBA and ambulated in room SBA without AD and agreed to ambulate in the hallway and completed >300 ft without AD. pt has difficulty ambulating a straight path but without LOB and did not run into anything fredy the path. informed to turn head to be able do see pathway better. pt completed up/down steps using L rail on first set SBA and repeated again using R rail SBA. ambulated back to his room. completed standing balance assessment: static standing balance with EC: G EO with perturbatio: F+ 360 turn: steady and continuous, standing with decrease SILVIA: G ; one leg stance: L: F+ R: P educated pt body COG and trunk control. repeated sinle let stand on R and completed: F- Gait Assessment Gait Gait Assistance Required: Standby Assistance Distance (Feet) 300 Able to Maintain Weight Bearing Status Yes During Gait Assistive Devices Assistive Device None,Gait Belt Orthotic/Prosthetic Devices or Brace: No Gait Deviations General Gait Pattern Decreased Stride Length, Decreased Feet Clearance Factors Limiting Gait Function Factors Limiting Gait Function Poor Balance Stair Climbing Assessment Evaluation Level of Assist On Stairs Standby Assistance Devices Stair Climbing Assistive Devices Left Railing,Right Railing Technique/Endurance Stair Climbing Direction Ascend and Descend Stair Climbing Technique Step Over Step Number of Steps Climbed 3 Query Text: Stair Climbing Set # Repetitions (reps) 2 PT-Balance Assessment Sitting Balance and Reactions Static Sitting Balance Ability Normal Dynamic Sitting Balance Ability Normal Standing Balance and Reactions Static Standing Balance Ability Good Dynamic Standing Balance Ability Good Device Used without AD Balance Tests Single Limb Standing LLE:F+ unsteady, hold for 10 sec RLE: P 3 sec hold M5 PT-IP Objective Assessments Start: 03/01/21 14:03 Freq: NEEDED Status: Active Protocol: Document 03/01/21 11:05 AB (Rec: 03/01/21 14:20 AB [id number]) Orientation Orientation/Cognition Level of Alertness Alert Orientation Name,Place,Situation Language Function Ability No Deficits Noted Safety Awareness Understands Safety Issues Memory Description No Deficits Noted Gross Range of Motion Lower Extremity ROM Assessment Within Functional Limits Strength Lower Extremity Strength Assessment Within Functional Limits Sensation Assessment Sensation Gross Sensation WNL Muscle Tone Muscle Tone WNL Yes M6 PT-IP Treatment Start: 03/01/21 14:03 Freq: NEEDED Status: Active Protocol: Document 03/01/21 11:05 AB (Rec: 03/01/21 14:20 AB [id number]) Physical Therapy Treatment Education Education Provided Safety M7 PT-IP Assessment and Plan Start: 03/01/21 14:03 Freq: NEEDED Status: Active Protocol: Document 03/01/21 11:05 AB (Rec: 03/01/21 14:20 AB [id number]) PT Summary Assessment and Plan Potential Rehabilitation Potential Good Status of Condition at Evaluation Stable Summary Impairments Pain,ROM,Strength,Balance, Coordination,Sensation,Tone, Cognition,Bed Mobility, Transfers,Gait,Activity Tolerance Assessment Summary Pt requiring SBA with ambulation without AD and also completed stair climbing SBA. pt will have his family to assist him if needed. pt may go home when medically stable. No further PT intervention indicated at this time. pt with some balance issues likely due to vision problems but pt is able to compensate and without LOB during ambulation. Frequency of Treatment Frequency Of Treatment Discharge Recommendations To Nursing Amount of Assist Needed Standby Assistance Discharge Recommendations PT Discharge Recommendations Home with Assistance Transportation Needs at Discharge Private Vehicle
--- NOTE | 2021-03-01 11:44 | PC.NURSE ---
Day shift: Pt doing well today. No changes with his left eye. Sppouse in room for support this AM and she will wait today for Pt to d/c. Some confusion over the eye drops that eye doc wanted Pt to take prior to going to our ED. Encouraged the spouse to call the nutritional services cook eye MD and ask for the eye drop sript to be sent to a pharmacy that is open today. She said Caitlin. Dr Lux is aware of this and he suggested she call the eye MD too. Pt having no pain or nausea. NIH 2 because of his left eye. Ambulated in halls w/ PT and he tolerated well. steady on feet without use of walker. [place] to [place] and Pt is planning on catching it. Priority boarding pass will be provided per protocol.
[2021-03-01] MEDS: BRIMONIDINE 0.2% OPHTH 5 ML 1 DROPS EYE-BOTH (12:08)
--- NOTE | 2021-03-01 12:32 | CM.DANOTE ---
Discharge Planning/Care Management DCP: assessment: case received, EMR reviewed, discussed in Team Rounds. Dr. Lux stated at that time that ECHO was pending and pt would likely be able to d/c home later today. A d/c order is now noted but specifics of same are not yet completed. Spoke with PRIYANKA Desai, caring for pt today, and then meet with pt and his Vaishnavi. Introduced self and role. PT is a 80 year old male who admitted yesterday afternoon after being sent over by Dr. Lopez of [facility]. Admitted to care of hospitalist team. Payer: [facility] Medicare Admission status: OBS.: confirmed by UR PRIYANKA Ralph Pt and Vaishnavi reside on [place] and are hoping to catch the [address] ferry back home if all is in place by then. DIRECTOR METABOLISM is working on priority board pass for same. PT worked with pt and cleared him for home setting. OT not available today. It is unclear at this time if ECHO results will be fully available by time pt must leave for the ferry. PRIYANKA Desai states that Dr. Lux said it would be fine for pt to return home before results are in place but that he has not told pt this information. He is expected to discuss this further with them this afternoon. P: home today? likely and as above. CM Discharge Assessment Start: 03/01/21 12:31 Freq: Status: Active Protocol: Document 03/01/21 12:31 ITV (Rec: 03/01/21 12:32 ITV [id number]) Discharge Planning Assessment Advance Directives? No History Provided By Patient,Family Member,Medical Record Prior Living Arrangements House Household Members spouse Independent with ADL's Yes Is patient alert and oriented? Yes Review Status In Process
--- NOTE | 2021-03-01 14:40 | PC.NURSE ---
Day shift: Paperwork signed and all questions answered. Pt has all personal belongings. scripts sent to Pt's pharmacy electronic. Pt's spouse in room for all teachings. Pt encouraged to follow up w/ PCP and his eye doctor MOLLY. Pt also has ferry boarding paper. Taken to car his spouse is driving in . Pt stated I'm happy to be going home now.
== END 2021-03-01 14:47 | disposition home or self-care (01) ==
LOC: ED 14:50 → AC 14:51
PROVIDERS: Nurse Practitioner Family; Admitting Provider Internal Medicine; Emergency Provider Emergency Medicine; Family Provider Family Medicine; PCP Family Medicine; Referring Provider Emergency Medicine; Visit Provider Internal Medicine
DX: H34.12 Central retinal artery occlusion, left eye (principal); I16.0 Hypertensive urgency; I10 Essential (primary) hypertension; R73.03 Prediabetes; E78.2 Mixed hyperlipidemia; I71.4 Abdominal aortic aneurysm, without rupture; Z20.822 Contact with and (suspected) exposure to COVID-19
CPT/HCPCS: 36415; 70450; 70496; 70498; 70548; 70553; 71045; 80048; 80053; 80061; 81003; 82550; 82553; 83036; 83735; 84443; 84484; 85025; 85651; 86140; 87635; 93005; 93010; 93306; 94760; 96372; 97161; 99285; C9803; G0378; A9579; J1650

== ENCOUNTER → 2022-11-10 12:45 | Outpatient (CLI) | payer MEDICARE, SELFPAY ==
[2022-04-22 16:43] VITALS: BMI 23.6
[2022-11-12 11:41] LABS: PSA Free % 35.5 % (.); PSA, Total 2.9 ng/mL (0.0-4.0)
== END ==
PROVIDERS: Family Provider Family Medicine; Referring Provider Specialist; Visit Provider Specialist
DX: N40.1 Benign prostatic hyperplasia with lower urinary tract symptoms (principal); N40.3 Nodular prostate with lower urinary tract symptoms; R97.20 Elevated prostate specific antigen [PSA]
CPT/HCPCS: 36415; 51798; 81002; 84153; 84154; 99215

== ENCOUNTER → 2022-12-09 08:43 | Outpatient (CLI) | payer MEDICARE, SELFPAY ==
[2022-04-22 16:43] VITALS: BMI 23.6
[2022-12-11 12:31] LABS: PSA Free % 34.4 % (.); PSA, Total 1.8 ng/mL (0.0-4.0)
== END ==
PROVIDERS: Family Provider Family Medicine; PCP Family Medicine; Referring Provider Specialist; Visit Provider Specialist
DX: R97.20 Elevated prostate specific antigen [PSA] (principal)
CPT/HCPCS: 36415; 84153; 84154

== ENCOUNTER → 2023-02-04 14:36 | Outpatient (CLI) | payer MEDICARE, SELFPAY ==
[2022-04-22 16:43] VITALS: BMI 23.6
--- NOTE | 2023-02-04 | DI.US.S_ITS ---
PROCEDURE: US ABDOMEN LIMITED INDICATIONS: RIGHT GROIN MASS TECHNIQUE: Real-time focused scanning was performed of the inguinal region, with image documentation. COMPARISON: None. FINDINGS: Interposed between the right common femoral artery and common femoral vein, an ovoid hypoechoic structure is present measuring 1.7 x 1.2 x 1.1 centimeters. No internal vascularity identified on Doppler images. The finding abuts but appears separate from the adjacent vasculature. No definitive communication with the peritoneal cavity identified sonographically. IMPRESSION: Indeterminate 1.7 centimeter structure visualized within the right groin, interposed between the right common femoral artery and common femoral vein. No definite internal vascularity identified on Doppler images. This is a nonspecific finding, could potentially represent a hypovascular solid mass, abnormal lymph node, or fluid collection such as prior hematoma or if there has been history of prior arterial intervention a thrombosed pseudoaneurysm. Clinical correlation is recommended, could consider further evaluation such as with CT to assess for other potential sites of lymphadenopathy/disease If CT is performed, imaging with and without contrast may be helpful to assess for presence of enhancement within the finding. Dictated by: Kenny Ariza M.D. on 02/04/2023 at 16:58 Approved by: Kenny Ariza M.D. on 02/04/2023 at 17:02
== END ==
PROVIDERS: Family Provider Family Medicine; PCP Family Medicine; Referring Provider Family Medicine; Visit Provider Family Medicine
DX: R19.09 Other intra-abdominal and pelvic swelling, mass and lump (principal)
CPT/HCPCS: 76705

== ENCOUNTER → 2025-04-19 08:29 | Outpatient (CLI) | payer MEDICARE, SELFPAY ==
[2022-04-22 16:43] VITALS: BMI 23.6
--- NOTE | 2025-04-19 08:32 | DI.MRI.S_ITS ---
PROCEDURE: MR HEAD/BRAIN WO CON INDICATIONS: cognitive deficit; lle weakness TECHNIQUE: Non-contrast axial T1 spin echo, axial T2 fast spin echo, sagittal and axial FLAIR, coronal T2 fast spin echo, axial gradient echo, axial diffusion and ADC through the brain. COMPARISON: [facility], MR, MR STROKE, 02/28/2021, 14:53. FINDINGS: Image quality: Excellent. CSF spaces: Ventricles appear symmetric in size and shape. Basal cisterns are patent. No extra-axial fluid collections. Brain: No intracranial bleeds or mass effects. There is cerebral volume loss for age. There are periventricular and deep white matter chronic small vessel ischemic changes, mildly progressed compared to prior. Brainstem appears normal. Diffusion- weighted images show no acute infarct. No chronic ischemic insults. Normal intravascular flow voids are present. Skull and face: Calvarial bone marrow is normal in signal. Bilateral lens replacements. Otherwise, the orbits are unremarkable. Sinuses: Sinuses and mastoids are clear. IMPRESSION: Age-related global volume loss and chronic microvascular ischemic changes are present and mildly progressed compared to prior. No acute or subacute infarct. No acute intracranial abnormalities. Dictated by: Clint Kraft M.D. on 04/19/2025 at 9:50 Approved by: Clint Kraft M.D. on 04/19/2025 at 9:53
== END ==
PROVIDERS: Family Provider Family Medicine; PCP Family Medicine; Referring Provider Family Medicine Adult Medicine; Visit Provider Family Medicine Adult Medicine
DX: R41.89 Other symptoms and signs involving cognitive functions and awareness (principal); R29.898 Other symptoms and signs involving the musculoskeletal system
CPT/HCPCS: 70551